=== PATIENT | male | born 1990 | race Hispanic/Latino ===

== ENCOUNTER → 2022-08-23 | Outpatient (REF) | payer OTHER | LOC: M LAB REF 12:15 | PROVIDERS: ATTEND Student in an Organized Health Care Education/Training Program | DX: R19.7 Diarrhea, unspecified (principal) ==

== ENCOUNTER 2023-08-01 14:31 | Emergency (ER) | payer OTHER ==
[~2023-08-01] VITALS: Ht 172.7 cm; Wt 92.4 kg
[2023-08-01] MEDS ORDERED: TRAM50TA2 PO (14:38)
[2023-08-01] MEDS ORDERED: ACET325C5 PO (14:38)
[2023-08-01 17:04] VITALS: BP 119/80; TEMP 98.1; O2SAT 96
[2023-08-01 17:05] LABS: HEMATOCRIT 49.8 % (42.0-52.0); HEMOGLOBIN 16.7 g/dl (13.5-17.5); MEAN CORPUSCULAR HEMOGLOBIN 29.1 pg (27.0-33.0); MEAN CORPUSCULAR HGB CONC 33.5 g/dl (32.0-36.5); MEAN CORPUSCULAR VOLUME 86.8 fl (80.0-96.0); PLATELET COUNT, AUTOMATED 203 10^3/uL (150-450); RED BLOOD COUNT 5.74 10^6/uL (4.30-6.10); WHITE BLOOD COUNT 6.1 10^3/uL (4.0-10.0)
[2023-08-01 17:08] LABS: ERYTHROCYTE SEDIMENTATION RATE 17 mm/hr (0-15)
[2023-08-01 18:38] LABS: SOURCE, BODY FLUID LFT KNEE; SYNOVIAL FLUID COLOR PALE YELLOW (COLORLESS)
[2023-08-01 18:39] LABS: SOURCE, BODY FLUID GLUCOSE LFT KNEE; SOURCE, BODY FLUID URIC ACID LFT KNEE
[2023-08-01 19:15] LABS: CRYSTALS, BODY FLUID NONE SEEN (NONE SEEN); SOURCE, BODY FLUID CRYSTALS LFT KNEE
== END 2023-08-01 17:07 | disposition home or self-care (01) ==
LOC: M ED 14:31
DX: M25.562 Pain in left knee (principal); F10.10 Alcohol abuse, uncomplicated; Z79.1 Long term (current) use of non-steroidal anti-inflammatories (NSAID); Z79.891 Long term (current) use of opiate analgesic

== ENCOUNTER → 2023-10-19 | Outpatient (REF) ==
[~2023-10-19] MED LIST: ACET325C5 PO; TRAM50TA2 PO
== END ==
LOC: M PLAIMG 10:03
PROVIDERS: ATTEND Family Medicine
DX: M54.6 Pain in thoracic spine (principal); M25.561 Pain in right knee; M25.571 Pain in right ankle and joints of right foot; M25.572 Pain in left ankle and joints of left foot

== ENCOUNTER 2024-01-28 10:13 | Emergency (ER) | payer OTHER ==
[~2024-01-28] VITALS: Ht 170.2 cm; Wt 93.5 kg
[2024-01-28 10:15] VITALS: BP 113/75; TEMP 97.7; O2SAT 96
[2024-01-28] MEDS ORDERED: ONDA-282 PO (13:48)
[2024-01-28] MEDS ORDERED: COLA100C5 PO (13:48)
== END 2024-01-28 14:36 | disposition home or self-care (01) ==
LOC: M ED 10:13
DX: K59.00 Constipation, unspecified (principal); F17.200 Nicotine dependence, unspecified, uncomplicated; F10.10 Alcohol abuse, uncomplicated; Z79.899 Other long term (current) drug therapy